=== PATIENT | male | born 1980 | race American Indian/Alaskan Native ===

== ENCOUNTER 2020-07-16 07:03 | Emergency (ER) | payer MEDICAID, SELFPAY ==
[2020-07-16] MEDS ORDERED: LORazepam 2 MG/ML VIAL IM PRN (07:05)
[2020-07-16] MEDS ORDERED: HALOPERIDOL LACTATE 5 MG/1 ML INJ IM PRN (07:05)
[2020-07-16] MEDS ORDERED: diphenhydrAMINE 50 MG/ML VIAL ONE (07:07)
--- NOTE | 2020-07-16 07:24 | Emergency Department Report ---
ED Psych HPI - General Chief Complaint: Psych Stated Complaint: SUICIDAL IDEATIONS Time Seen by Provider: 07/16/20 07:04 Source: patient, EMS (Verbal report received from emergency medical services. EMS documentation not available at time of chart dictation ), RN notes reviewed Mode of arrival: Stretcher Limitations: Other (Acute psychosis) - History of Present Illness Initial Comments: The patient was evaluated in the emergency department for symptoms described in the history of present illness. He/she was evaluated in the context of the global COVID-19 pandemic, which necessitated consideration that the patient might be at risk for infection with the virus that causes COVID-19. Institutional protocols and algorithms that pertain to the evaluation of patients at risk for COVID-19 are in a state of rapid change based on information released by regulatory bodies including the CDC and federal and state organizations. These policies and algorithms were followed during the patient's care in the emergency department. Please note that these policies, procedures and recommendations changed on a rapid basis. This is a 41-year-old gentleman. This patient is not known to myself previously. The patient is brought to the hospital by emergency medical services for psychiatric evaluation. The patient is acutely psychotic, and not accompanied by friends or family at this time for collateral information. History is entirely obtained from emergency medical services. They report that a friend or significant other of the patient contacted emergency medical services with a complaint that the patient was psychotic and suicidal. EMS tel ls me that the patient endorsed suicidality, and was superficially scratching himself in the neck with a pair of keys. They also tell me that the patient was hanging off of the balcony. They also state that the patient ambulated normally in the field, had unremarkable vital signs and was initially cooperative, however, they report that while in the ambulance, the patient's behavior became more erratic, and uncooperative. In the emergency room, the patient walks with a steady gait, and threatened to kill multiple ER staff members. He was also noted to be tapping his head on a Plexiglas wall. Patient is psychotic, and therefore, not able to describe qualitative nature of her symptoms, exacerbating factors, relieving factors, or aggravating factors. Review of systems is not possible secondary to acute psychosis. Patient is not currently accompanied by friends or family at this time for additional information or collateral information. MD Complaint: other (As per history of present illness) -: unknown If Self Harm: admits thoughts of - Related Data Allergies Allergy/AdvReac Type Severity Reaction Status Date / Time No Known Allergies Allergy Unverified 06/10/20 10:55 ED Review of Systems ROS: Stated complaint: SUICIDAL IDEATIONS Other details as noted in HPI Comment: Unobtainable due to pts medical conditions ED Physical Exam - General Limitations: Other (Acute psychosis) General appearance: alert, anxious - Head Head exam: Present: atraumatic, normocephalic - Eye Eye exam: Present: normal appearance, EOMI - ENT ENT exam: Present: normal exam, normal orophraynx, mucous membranes moist, normal external ear exam - Neck Neck exam: Present: normal inspection, full ROM. Absent: tenderness, meningismus - Respiratory Respiratory exam: Present: normal lung sounds bilaterally. Absent: respiratory distress, wheezes, rales, rhonchi, stridor, decreased breath sounds - Cardiovascular Cardiovascular Exam: Present: regular rate, normal rhythm, normal heart sounds. Absent: bradycardia, tachycardia, irregular rhythm, systolic murmur, diastolic murmur, rubs, gallop - GI/Abdominal GI/Abdominal exam: Present: soft. Absent: distended, tenderness, guarding, rigid, pulsatile mass - Rectal Rectal exam: Present: deferred - Extremities Exam Extremities exam: Present: normal inspection, full ROM, other (2+ pulses noted in the bilateral upper and lower extremities. There is no palpable cord. negative Homans sign. Muscular compartments are soft. The pelvis is stable.). Absent: pedal edema, calf tenderness - Back Exam Back exam: Present: normal inspection, full ROM. Absent: tenderness, CVA tenderness (R), CVA tenderness (L), paraspinal tenderness, vertebral tenderness - Neurological Exam Neurological exam: Present: other (The patient is awake. The patient walks with a steady gait. There is no facial droop. The patient makes nonsensical sounds. Detailed neurologic examination not possible secondary to acute psychosis) - Psychiatric Psychiatric exam: Present: agitated - Skin Skin exam: Present: warm, dry, intact, normal color. Absent: rash ED Course Vital Signs 07/16/20 07/16/20 07/16/20 07:38 08:19 15:30 Temperature 98.1 F 98.6 F Pulse Rate 83 85 Respiratory 18 16 16 Rate Blood Pressure 122/85 141/90 [Right] O2 Sat by Pulse 100 100 Oximetry - Reevaluation(s) Reevaluation #1: 07/16/20 07:23 Differential diagnosis, including the not limited to: Psychosis, medical clearance for psychiatric placement Assessment and plan: 40-year-old gentleman with unremarkable prehospital vital signs, as per verbal report from EMS, presenting with acute psychosis. Patient placed on 1013. Patient agitated, and belligerent, threatening ER staff, did not respond to verbal de-escalation techniques or show of force, required medication with haloperidol, Ativan, and Benadryl as well as seclusion. Hospital policy, procedure and protocol are followed. Standard laboratory studies will be acquired as part of medical clearance for psychiatric placement. Do not suspect Covid, but will obtain Covid test to facilitate placement. We will reassess after initial data points. Reevaluation #2: 07/16/20 09:31 Laboratory studies appear to be unremarkable. Patient does not appear to have an emergent medical condition at this time which would preclude psychiatric evaluation, consultation, and hospitalization. Urinalysis pending at this time. ED Medical Decision Making - Lab Data Result diagrams: 07/16/20 08:25 07/16/20 08:25 Vital Signs 07/16/20 07/16/20 07:38 08:19 Temperature 98.1 F Pulse Rate 83 Respiratory 18 16 Rate Blood Pressure 122/85 [Right] O2 Sat by Pulse 100 Oximetry Lab Results 07/16/20 07/16/20 07/16/20 Range/Units 08:25 08:25 08:25 WBC 10.4 (4.5-11.0) K/mm3 RBC 5.54 H (3.65-5.03) M/mm3 Hgb 16.2 H (11.8-15.2) gm/dl Hct 48.7 H (35.5-45.6) % MCV 88 (84-94) fl MCH 29 (28-32) pg MCHC 33 (32-34) % RDW 15.5 H (13.2-15.2) % Plt Count 260 (140-440) K/mm3 Sodium 141 (137-145) mmol/L Potassium 4.0 (3.6-5.0) mmol/L Chloride 107.6 H (98-107) mmol/L Carbon Dioxide 23 (22-30) mmol/L Anion Gap 14 mmol/L BUN 14 (9-20) mg/dL Creatinine 0.8 (0.8-1.3) mg/dL Estimated GFR > 60 ml/min BUN/Creatinine Ratio 18 % Glucose 99 (75-100) mg/dL Calcium 9.3 (8.4-10.2) mg/dL Magnesium 2.50 H (1.7-2.3) mg/dL Total Creatine Kinase 627 H (55-170) units/L Salicylates < 0.3 L (2.8-20.0) mg/dL Acetaminophen (10.0-30.0) ug/mL Plasma/Serum Alcohol (0-0.07) % 07/16/20 07/16/20 Range/Units 08:25 08:25 WBC (4.5-11.0) K/mm3 RBC (3.65-5.03) M/mm3 Hgb (11.8-15.2) gm/dl Hct (35.5-45.6) % MCV (84-94) fl MCH (28-32) pg MCHC (32-34) % RDW (13.2-15.2) % Plt Count (140-440) K/mm3 Sodium (137-145) mmol/L Potassium (3.6-5.0) mmol/L Chloride (98-107) mmol/L Carbon Dioxide (22-30) mmol/L Anion Gap mmol/L BUN (9-20) mg/dL Creatinine (0.8-1.3) mg/dL Estimated GFR ml/min BUN/Creatinine Ratio % Glucose (75-100) mg/dL Calcium (8.4-10.2) mg/dL Magnesium (1.7-2.3) mg/dL Total Creatine Kinase (55-170) units/L Salicylates (2.8-20.0) mg/dL Acetaminophen 5.0 L (10.0-30.0) ug/mL Plasma/Serum Alcohol < 0.01 (0-0.07) % Critical care attestation.: If time is entered above; I have spent that time in minutes in the direct care o f this critically ill patient, excluding procedure time. ED Disposition Clinical Impression: Acute psychosis, Medical clearance for psychiatric admission Disposition: [id number]/TX-65 PSY HOSP/PSY UNIT Is pt being admited?: No Does the pt Need Aspirin: No Condition: Good Referrals: PRIMARY CARE, [Primary Care Provider] - 3-5 Days
[2020-07-16] MEDS ORDERED: diphenhydrAMINE 50 MG/ML VIAL IV ONE (07:32)
[2020-07-16] MEDS ORDERED: diphenhydrAMINE 50 MG/ML VIAL IM ONE (07:34)
[2020-07-16 08:35] LABS: Hematocrit 48.7 % (35.5-45.6); Hemoglobin 16.2 gm/dl (11.8-15.2); Mean Corpuscular HGB Conc 33 % (32-34); Mean Corpuscular Volume 88 fl (84-94); Platelet Count 260 K/mm3 (140-440); Red Blood Count 5.54 M/mm3 (3.65-5.03); Red Cell Distribution Width 15.5 % (13.2-15.2)
[2020-07-16 08:59] LABS: BUN/Creatinine Ratio 18; Blood Urea Nitrogen 14 mg/dL (9-20); Calcium 9.3 mg/dL (8.4-10.2); Hemolysis Index 49
--- NOTE | 2020-07-16 10:32 | Consultation ---
History of Present Illness - Reason for Consult Consult date: 07/16/20 Reason for consult: psychosis - History of Present Psychiatric Illness I attempted to interview the patient today, he was sleeping with difficulty to engage in the interview process. His thinking is disorganized. He was aroused four times, each time he drifted back off. At that time I light tapped the patient on his leg. He raises up and sits on side of the bed and mumbles something. He does not respond to any more questions. He mumbles something as I am going out of the door but it is incomprehensible. PAST PSYCHIATRIC HISTORY: Unable to obtain PAST MEDICAL HISTORY: None reported Family Psychiatric History: None reported or documented SOCIAL HISTORY Unable to get the patient engaged long enough REVIEW OF SYSTEMS Unable to obtain MENTAL STATUS EXAMINATION Unable to adequately obtain Assessment and Plan (1) Schizoaffective Disorder RECOMMENDATIONS 1013 MEDICATIONS: Risperidone 0.25mg po BID Trazodone 50mg po qhs Depakote DR 125mg po BID Risks, benefits and alternatives of medications discussed with the patient, questions answered and consent obtained from patient. PSYCHOTHERAPY: Supportive psychotherapy provided MEDICAL: Per primary team DELIRIUM PRECAUTIONS: Please re-orient patient frequently, keep lights on during the day, and minimize benzodiazepines and opiates as these medications could worsen patient's confusion. 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 Will follow. Thank you for this consult. Case staffed with Dr. Choudhury. Medications and Allergies Allergies Allergy/AdvReac Type Severity Reaction Status Date / Time No Known Allergies Allergy Unverified 06/10/20 10:55 Active Meds: Active Medications Haloperidol Lactate (Haldol) 5 mg IM Q6HR PRN PRN Reason: Agitation Last Admin: 07/16/20 07:20 Dose: 5 mg Documented by: Lorazepam (Ativan) 2 mg IM Q4HR PRN PRN Reason: Agitation Last Admin: 07/16/20 07:20 Dose: 2 mg Documented by: Mental Status Exam - Vital signs Last Vital Signs Temp 98.1 F 07/16/20 08:19 Pulse 83 07/16/20 08:19 Resp 16 07/16/20 08:19 BP 122/85 07/16/20 08:19 Pulse Ox 100 07/16/20 08:19 Results Result Diagrams: 07/16/20 08:25 07/16/20 08:25 Abnormal lab results 07/16/20 07/16/20 07/16/20 Range/Units 08:25 08:25 08:25 RBC 5.54 H (3.65-5.03) M/mm3 Hgb 16.2 H (11.8-15.2) gm/dl Hct 48.7 H (35.5-45.6) % RDW 15.5 H (13.2-15.2) % Chloride 107.6 H (98-107) mmol/L Magnesium 2.50 H (1.7-2.3) mg/dL Total Creatine Kinase 627 H (55-170) units/L Salicylates < 0.3 L (2.8-20.0) mg/dL Acetaminophen (10.0-30.0) ug/mL 07/16/20 Range/Units 08:25 RBC (3.65-5.03) M/mm3 Hgb (11.8-15.2) gm/dl Hct (35.5-45.6) % RDW (13.2-15.2) % Chloride (98-107) mmol/L Magnesium (1.7-2.3) mg/dL Total Creatine Kinase (55-170) units/L Salicylates (2.8-20.0) mg/dL Acetaminophen 5.0 L (10.0-30.0) ug/mL All other labs normal.
[2020-07-16] MEDS: DIVALPROEX DR 125 MG TAB PO SCH ×2 (12:05→21:59)
[2020-07-16] MEDS: risperiDONE 0.25 MG TAB PO SCH ×2 (12:05→21:59)
[2020-07-16 15:53] LABS: Bilirubin,Urine NEG (Negative); Blood,Urine NEG (Negative); Color,Urine Yellow (Yellow); Mucus,Urine FEW /HPF; Protein,Urine <15 mg/dL mg/dL (Negative); Urobilinogen,Urine < 2.0 mg/dL (<2.0); WBC,Urine < 1.0 /HPF (0.0-6.0)
[2020-07-16 16:08] LABS: Amphetamine Screen,Urine Negative; Benzodiazepines Screen,Urine Negative; Cannabinoid Screen,Urine Negative; Cocaine Screen,Urine Negative; Methadone Screen,Urine Negative; Opiate Screen,Urine Negative
[2020-07-16 21:12] LABS: Hematocrit 44.6 % (35.5-45.6); Hemoglobin 14.9 gm/dl (11.8-15.2); Mean Corpuscular HGB Conc 33 % (32-34); Mean Corpuscular Volume 87 fl (84-94); Platelet Count 247 K/mm3 (140-440); Red Blood Count 5.15 M/mm3 (3.65-5.03); Red Cell Distribution Width 15.5 % (13.2-15.2)
[2020-07-16] MEDS ORDERED: traZODone 50 MG TAB PO SCH (22:00)
[2020-07-17 08:33] VITALS: BP 139/93
[2020-07-17] MEDS ORDERED: NICOTINE 21 MG/24 HR PATCH TD ONE (09:20)
--- NOTE | 2020-07-17 10:13 | Progress Note ---
Subjective - Reason for Consult Consult date: 07/17/20 Reason for consult: disorganization - Chief Complaint Chief complaint: During my interview with the patient today, he is lucid. He is conversational. The patient is calm, cooperative and polite. He is a/o x 3. The patient says he had been off of his meds. He says "[facility] He says "I have PTSD and schizophrenia." The patient says, "I normally take prozine, but I guess whatever you gave me have been working." The patient denies hallucinations of any kind. He say "I did yesterday, but nothing at all today or last night." He also denies SI/HI. The patient also denies any fear of feelings of endangerment. The patient says, "the bottomline is I'm here because I wasn't taking my meds." REVIEW OF SYSTEMS Constitutional: Negative for weight loss ENT: Negative for stridor Respiratory: Negative for cough or hemoptysis All other systems reviewed and are negative MENTAL STATUS EXAMINATION General Appearance and Behavior: Age appropriate, good hygiene, wearing appropriate clothes, good eye contact, calm and cooperative Cooperation: cooperative Psychomotor Behavior: Psychomotor normal Mood: "better" Affect and affective range: congruent with stated mood Thought Process: logical Thought Content: None Speech: Normal tone and pace Suicidal Ideation: Denies Homicidal Ideation: Denies Hallucinations: Denies Delusions: None elicited Impulse Control: Normal Insight and Judgment: Normal insight and judgment Memory: Normal Attention: Limited Orientation: Alert Assessment and Plan (1) Schizoaffective Disorder (2) Noncompliance with other medical treatment and therapies RECOMMENDATIONS d/c 1013 MEDICATIONS: Risperidone 0.25mg po BID Trazodone 50mg po qhs Depakote DR 125mg po BID Continue previously prescribed home meds Risks, benefits and alternatives of medications discussed with the patient, questions answered and consent obtained from patient. PSYCHOTHERAPY: Supportive psychotherapy provided MEDICAL: Per primary team DELIRIUM PRECAUTIONS: Please re-orient patient frequently, keep lights on during the day, and minimize benzodiazepines and opiates as these medications could worsen patient's confusion. 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 The patient understands that if the patient is to exhibit signs of suicidal or homicidal tendencies he is to seek immediate assistance including but not limited to the crisis hotline, 911/ER The boat cleaner to discuss safety plan with the patient, and other resources The patient to follow up with outpatient [facility] or [facility] 7 [facility] 14 [facility] upon discharge Will sign off. Thank you for this consult. Case staffed with Dr. Choudhury. Mental Status Exam - Vital signs Last Vital Signs Temp 98.7 F 07/17/20 08:31 Pulse 94 H 07/17/20 08:31 Resp 18 07/17/20 08:31 BP 139/93 07/17/20 08:31 Pulse Ox 98 07/17/20 08:31
[2020-07-17] MEDS: DIVALPROEX DR 125 MG TAB PO SCH (10:57)
[2020-07-17] MEDS: risperiDONE 0.25 MG TAB PO SCH (10:57)
== END 2020-07-17 12:45 | disposition home or self-care (01) ==
LOC: ED 07:03
DX: F23 Brief psychotic disorder (principal); Z00.8 Encounter for other general examination; Z20.828 Contact with and (suspected) exposure to other viral communicable diseases
CPT/HCPCS: 36415; 80048; 80307; 81001; 82550; 83735; 85027; 96372; 99284; J1200; J1630; J2060; U0003; 80320; G0480

== ENCOUNTER 2022-01-05 12:02 | Emergency (ER) | payer OTHER ==
--- NOTE | 2022-01-05 13:31 | Emergency Department Report ---
ED Psych HPI - General Chief Complaint: Medical Clearance Stated Complaint: UNRESPONSIVE Time Seen by Provider: 01/05/22 13:21 Source: EMS Mode of arrival: Stretcher Limitations: No Limitations - History of Present Illness Initial Comments: 41-year-old male with a past medical history of PTSD presents to the hospital with episode of refusing to speak. Patient's called EMS because he was staring and not speaking. Upon EMS arrival he was speaking and responding to one of the paramedics but not the other. Even here in the ED he selectively responds to questions. Nurse Bianca was speaking to him and patient apparently was answering her questions. She states that patient has a history of previous incarceration. He has not been on meds for several days. Recently restarted his medication with last dose this morning. When I try to speak to patient to clarify this he just stares at me at time. He then states that he will only answer me if I asked the right questions. He denies suicidal ideation, homicidal ideation, psychosis, or pain. He cannot recall his current medications - Related Data Previous Rx's Medication Instructions Recorded Last Taken Type risperiDONE [RisperDAL] 0.25 mg PO BID #60 tab 07/17/20 01/05/22 09:00 Rx traZODone [Desyrel] 50 mg PO QHS #30 tab 07/17/20 01/05/22 09:00 Rx 50 MG Amlodipine Besylate [Norvasc] 5 mg PO DAILY #30 tab 01/05/22 Unknown Rx Allergies Allergy/AdvReac Type Severity Reaction Status Date / Time No Known Allergies Allergy Unverified 01/05/22 13:36 ED Review of Systems ROS: Stated complaint: UNRESPONSIVE Other details as noted in HPI Comment: All other systems reviewed and negative ED Past Medical Hx - Social History Smoking Status: Never Smoker Substance Use Type: None - Medications Home Medications: Home Medications Medication Instructions Recorded Confirmed Last Taken Type risperiDONE [RisperDAL] 0.25 mg PO BID #60 tab 07/17/20 01/05/22 01/05/22 09:00 Rx traZODone [Desyrel] 50 mg PO QHS #30 tab 07/17/20 01/05/22 01/05/22 09:00 Rx 50 MG Amlodipine Besylate [Norvasc] 5 mg PO DAILY #30 tab 01/05/22 Unknown Rx ED Physical Exam - General Limitations: No Limitations - Other Other exam information: General: No acute distress Head: Atraumatic Eyes: normal appearance ENT: Moist mucous membranes Neck: Normal appearance, no midline tenderness Chest: Clear to auscultation bilaterally CV: Regular rate and rhythm Abdomen: Soft, normal bowel sounds, nontender, nondistended, no rebound or guarding Back: Normal inspection Extremity: Normal inspection, full range of motion Neuro: Alert O x 3, no facial asymmetry, speech clear, no gross motor sensory deficit Psych: Selectively answering questions. When he does not want to answer questions he was given aggressive stare. Constantly flicking his license with his finger Skin: No rash ED Course Vital Signs 01/05/22 13:25 Temperature 97.8 F Pulse Rate 67 Respiratory 18 Rate Blood Pressure 172/106 O2 Sat by Pulse 98 Oximetry ED Medical Decision Making - Medical Decision Making 41-year-old male presents to the hospital with "unresponsive episode". Patient is having intermittent episodes of refusing to respond to answer questions. Patient denies psychosis, suicidal, or homicidal ideation when questioned. He does not require for 1013. Upon arrival he refuses to have his blood drawn or CT scan. No deficits on examination. Patient provided his 's phone number [facility] [phone] but it is disconnected. At this time patient will be discharged with refusal for treatment. Outpatient follow-up for blood pressure recheck advised refused treatment d/c with ama - Differential Diagnosis Psychosis, PTSD, drug abuse, absence seizure Critical Care Time: No Critical care attestation.: If time is entered above; I have spent that time in minutes in the direct care of this critically ill patient, excluding procedure time. ED Disposition Clinical Impression: PTSD (post-traumatic stress disorder), Elevated blood pressure reading Disposition: LEFT AGAINST MEDICAL ADVICE Is pt being admited?: No Does the pt Need Aspirin: No Condition: Stable Instructions: Post-Traumatic Stress Disorder, Adult, Hypertension, Adult Additional Instructions: Take the medication as prescribed. Follow-up with your doctor or doctor/clinic provided. Return if symptoms worsen as indicated by your discharge instr uctions. Prescriptions: Amlodipine Besylate [Norvasc] 5 mg PO DAILY #30 tab Referrals: CHANDNI MORALES MD [Primary Care Provider] - 3-5 Days [facility] [Provider Group] - 3-5 Days KAITLYNN GILBERT MD [Staff Physician] - 3-5 Days Forms: AMA Form Time of Disposition: 14:27
[2022-01-05 13:36] VITALS: BP 172/106
== END 2022-01-05 20:00 | disposition left against medical advice (07) ==
LOC: ED 12:02
DX: F43.10 Post-traumatic stress disorder, unspecified (principal); I10 Essential (primary) hypertension; X58.XXXA Exposure to other specified factors, initial encounter; Y93.89 Activity, other specified; Y92.89 Other specified places as the place of occurrence of the external cause; Y99.8 Other external cause status
CPT/HCPCS: 99283